=== PATIENT | male | born 1995 | race Caucasian/White ===

== ENCOUNTER 2023-04-03 20:39 | Inpatient (IN) | payer OTHER ==
[~2023-04-03] VITALS: Ht 180.3 cm; Wt 91.7 kg
[2023-04-03] MEDS ORDERED: ACETAMINOPHEN 325 MG TAB PO ONE (21:25)
[2023-04-03 21:54] LABS: HEMATOCRIT 35.3 % (42.0-52.0); HEMOGLOBIN 12.5 g/dl (13.5-17.5); LYMPH # 0.4 10^3/uL (1.5-5.0); LYMPH % 70.4 % (24.0-44.0); MEAN CORPUSCULAR HEMOGLOBIN 29.4 pg (27.0-33.0); MEAN CORPUSCULAR HGB CONC 35.4 g/dl (32.0-36.5); MEAN CORPUSCULAR VOLUME 83.1 fl (80.0-96.0); MONO # 0.1 10^3/uL (0.0-0.8); NEUTROPHILS % 16.6 % (36.0-66.0); PLATELET COUNT, AUTOMATED 123 10^3/uL (150-450); RED BLOOD COUNT 4.25 10^6/uL (4.30-6.10)
[2023-04-03 21:58] LABS: NEUTROPHILS # 0.1 10^3/uL (1.5-8.5); WHITE BLOOD COUNT 0.5 10^3/uL (4.0-10.0)
[2023-04-03 22:26] LABS: ALBUMIN 3.3 G/DL (3.2-5.2); ALKALINE PHOSPHATASE 55 U/L (46-116); ALT/SGPT 25 U/L (7.0-40); AST/SGOT 13 U/L (<34); BILIRUBIN,TOTAL 0.4 MG/DL (0.3-1.2); BLOOD UREA NITROGEN 14 MG/DL (9-23); CALCIUM LEVEL 8.6 MG/DL (8.5-10.1); CARBON DIOXIDE LEVEL 26 MMOL/L (20-31); CHLORIDE LEVEL 100 MMOL/L (98-107); CREATININE FOR GFR 1.26 MG/DL (0.70-1.30); GLOMERULAR FILTRATION RATE > 60.0 (>60); GLUCOSE, FASTING 102 MG/DL (60-100); MAGNESIUM LEVEL 1.4 MG/DL (1.8-2.4); POTASSIUM SERUM 3.8 MMOL/L (3.5-5.1); SODIUM LEVEL 135 MMOL/L (136-145); TOTAL PROTEIN 6.6 G/DL (5.7-8.2)
[2023-04-03] MEDS ORDERED: CEFEPIME HCL 1 GM in D5W MINI-BAG PLUS 50 ML IV ONE (23:35)
[2023-04-03] MEDS ORDERED: UNRESOLVED CLARIFICATION ENTRY XX STA (23:35)
[2023-04-04] MEDS ORDERED: ACETAMINOPHEN TAB 650MG DOSE (2X325MG) PO PRN (00:40)
[2023-04-04] MEDS ORDERED: MOM 30ML SUSPENSION UDC PO PRN (00:40)
[2023-04-04] MEDS ORDERED: NS 1,000 ML IV SCH (00:40)
[2023-04-04 00:55] VITALS: BP 111/61; TEMP 97.5; O2SAT 96
[2023-04-04] MEDS ORDERED: MAG SULF 1GM/100ML (MAG RUN) 1 GM in IV 1 EA IV ONE (01:00)
[2023-04-04] MEDS ORDERED: ONDA-196 PO (01:07)
[2023-04-04] MEDS ORDERED: DOCU100C17 PO (01:07)
[2023-04-04] MEDS ORDERED: PROC5TAB57 PO (01:07)
[2023-04-04] MEDS ORDERED: HOME MED LIST COMPLETE! XX SCH (01:10)
[2023-04-04] MEDS: HEPARIN SOD (PORCINE) 5000UNITS/ML 1ML VIAL/SYRINGE SQ SCH ×4 (05:37→22:00)
[2023-04-04 05:43] VITALS: BP 128/68; TEMP 97.5; O2SAT 100
[2023-04-04] MEDS: CEFEPIME HCL 2 GM in D5W 50 ML IV SCH ×3 (05:49→22:39)
[2023-04-04 07:54] LABS: BASO % 1.2 % (0.0-1.0); EOS % 3.7 % (0.0-3.0); HEMATOCRIT 34.3 % (42.0-52.0); HEMOGLOBIN 12.2 g/dl (13.5-17.5); LYMPH # 0.5 10^3/uL (1.5-5.0); LYMPH % 66.7 % (24.0-44.0); MEAN CORPUSCULAR HEMOGLOBIN 29.7 pg (27.0-33.0); MEAN CORPUSCULAR HGB CONC 35.6 g/dl (32.0-36.5); MEAN CORPUSCULAR VOLUME 83.5 fl (80.0-96.0); MONO # 0.2 10^3/uL (0.0-0.8); MONO % 22.2 % (2.0-8.0); NEUTROPHILS % 6.2 % (36.0-66.0); PLATELET COUNT, AUTOMATED 120 10^3/uL (150-450); RED BLOOD COUNT 4.11 10^6/uL (4.30-6.10)
[2023-04-04 08:09] LABS: NEUTROPHILS # 0.1 10^3/uL (1.5-8.5); WHITE BLOOD COUNT 0.8 10^3/uL (4.0-10.0)
[2023-04-04 08:21] LABS: ALKALINE PHOSPHATASE 54 U/L (46-116); ALT/SGPT 26 U/L (7.0-40); AST/SGOT 13 U/L (<34); BILIRUBIN,TOTAL 0.6 MG/DL (0.3-1.2); BLOOD UREA NITROGEN 15 MG/DL (9-23); CALCIUM LEVEL 8.3 MG/DL (8.5-10.1); CARBON DIOXIDE LEVEL 27 MMOL/L (20-31); CHLORIDE LEVEL 103 MMOL/L (98-107); CREATININE FOR GFR 1.13 MG/DL (0.70-1.30); GLOMERULAR FILTRATION RATE > 60.0 (>60); GLUCOSE, FASTING 102 MG/DL (60-100); MAGNESIUM LEVEL 1.8 MG/DL (1.8-2.4); POTASSIUM SERUM 4.1 MMOL/L (3.5-5.1); SODIUM LEVEL 138 MMOL/L (136-145); TOTAL PROTEIN 6.1 G/DL (5.7-8.2)
[2023-04-04] MEDS: FILGRASTIM 480 MCG/0.8 ML SYRINGE **SC ADMINISTRATION ONLY SC SCH (11:04)
[2023-04-04 11:55] LABS: PROCALCITONIN 0.18 ng/ml
[2023-04-04 13:55] VITALS: BP 126/65; TEMP 97.7; O2SAT 99
[2023-04-04 20:41] VITALS: BP 128/78; TEMP 98.1; O2SAT 96
[2023-04-05] MEDS: HEPARIN SOD (PORCINE) 5000UNITS/ML 1ML VIAL/SYRINGE SQ SCH ×3 (05:36→21:44)
[2023-04-05 05:45] VITALS: BP 127/77; TEMP 97.7; O2SAT 97
[2023-04-05] MEDS: CEFEPIME HCL 2 GM in D5W 50 ML IV SCH ×3 (05:47→21:53)
[2023-04-05 06:05] LABS: HEMATOCRIT 34.8 % (42.0-52.0); HEMOGLOBIN 12.4 g/dl (13.5-17.5); MEAN CORPUSCULAR HEMOGLOBIN 29.6 pg (27.0-33.0); MEAN CORPUSCULAR HGB CONC 35.6 g/dl (32.0-36.5); MEAN CORPUSCULAR VOLUME 83.1 fl (80.0-96.0); PLATELET COUNT, AUTOMATED 160 10^3/uL (150-450); RED BLOOD COUNT 4.19 10^6/uL (4.30-6.10); WHITE BLOOD COUNT 1.3 10^3/uL (4.0-10.0)
[2023-04-05 06:33] LABS: ALKALINE PHOSPHATASE 56 U/L (46-116); ALT/SGPT 29 U/L (7.0-40); AST/SGOT 16 U/L (<34); BILIRUBIN,TOTAL 0.5 MG/DL (0.3-1.2); BLOOD UREA NITROGEN 11 MG/DL (9-23); CALCIUM LEVEL 8.4 MG/DL (8.5-10.1); CARBON DIOXIDE LEVEL 27 MMOL/L (20-31); CHLORIDE LEVEL 102 MMOL/L (98-107); CREATININE FOR GFR 1.18 MG/DL (0.70-1.30); GLOMERULAR FILTRATION RATE > 60.0 (>60); GLUCOSE, FASTING 96 MG/DL (60-100); MAGNESIUM LEVEL 1.6 MG/DL (1.8-2.4); POTASSIUM SERUM 4.5 MMOL/L (3.5-5.1); SODIUM LEVEL 139 MMOL/L (136-145); TOTAL PROTEIN 6.2 G/DL (5.7-8.2)
[2023-04-05 07:23] LABS: ATYPICAL LYMPH 29 % (0-5); BASOPHILS 3 % (0-1); BLAST CELLS 1 % (0-0); EOSINOPHILS 3 % (0-3); GIANT PLATELETS 1+; LYMPHOCYTES 33 % (16-44); MONOCYTES 28 % (0-5); NEUTROPHILS 2 % (28-66); PLATELET ESTIMATE NORMAL (NORMAL); TOXIC VACUOLATION 1+
[2023-04-05] MEDS: MAG SULF 1GM/100ML (MAG RUN) 1 GM in IV 1 EA IV SCH ×2 (08:20→10:18)
[2023-04-05] MEDS: MAGNESIUM OXIDE 400MG TAB (MAG-OX) PO SCH ×2 (08:21→21:54)
[2023-04-05] MEDS: FILGRASTIM 480 MCG/0.8 ML SYRINGE **SC ADMINISTRATION ONLY SC SCH (13:17)
[2023-04-05 16:18] LABS: HEMATOCRIT 35.9 % (42.0-52.0); HEMOGLOBIN 12.7 g/dl (13.5-17.5); MEAN CORPUSCULAR HEMOGLOBIN 29.1 pg (27.0-33.0); MEAN CORPUSCULAR HGB CONC 35.4 g/dl (32.0-36.5); MEAN CORPUSCULAR VOLUME 82.2 fl (80.0-96.0); PLATELET COUNT, AUTOMATED 167 10^3/uL (150-450); RED BLOOD COUNT 4.37 10^6/uL (4.30-6.10); WHITE BLOOD COUNT 2.2 10^3/uL (4.0-10.0)
[2023-04-05 16:38] LABS: ATYPICAL LYMPH 18 % (0-5); BASOPHILS 1 % (0-1); BLAST CELLS 1 % (0-0); DOHLE BODIES 1+; EOSINOPHILS 2 % (0-3); LYMPHOCYTES 48 % (16-44); METAMYELOCYTES 1 % (0-0); MONOCYTES 19 % (0-5); NEUTROPHILS 7 % (28-66); PLATELET ESTIMATE NORMAL (NORMAL)
[2023-04-05] MEDS: GABAPENTIN 100 MG CAP PO SCH ×2 (17:17→21:53)
[2023-04-05 20:15] VITALS: BP 132/73; TEMP 97.3; O2SAT 97
[2023-04-06 05:32] VITALS: BP 123/74; TEMP 97.9; O2SAT 96
[2023-04-06] MEDS: HEPARIN SOD (PORCINE) 5000UNITS/ML 1ML VIAL/SYRINGE SQ SCH (06:00)
[2023-04-06 06:05] LABS: HEMATOCRIT 36.3 % (42.0-52.0); HEMOGLOBIN 12.8 g/dl (13.5-17.5); MEAN CORPUSCULAR HEMOGLOBIN 29.2 pg (27.0-33.0); MEAN CORPUSCULAR HGB CONC 35.3 g/dl (32.0-36.5); MEAN CORPUSCULAR VOLUME 82.9 fl (80.0-96.0); PLATELET COUNT, AUTOMATED 184 10^3/uL (150-450); RED BLOOD COUNT 4.38 10^6/uL (4.30-6.10); WHITE BLOOD COUNT 4.2 10^3/uL (4.0-10.0)
[2023-04-06] MEDS: CEFEPIME HCL 2 GM in D5W 50 ML IV SCH (06:08)
[2023-04-06 06:27] LABS: ALKALINE PHOSPHATASE 61 U/L (46-116); ALT/SGPT 27 U/L (7.0-40); AST/SGOT 18 U/L (<34); BILIRUBIN,TOTAL 0.5 MG/DL (0.3-1.2); BLOOD UREA NITROGEN 13 MG/DL (9-23); CALCIUM LEVEL 8.7 MG/DL (8.5-10.1); CARBON DIOXIDE LEVEL 29 MMOL/L (20-31); CHLORIDE LEVEL 101 MMOL/L (98-107); GLOMERULAR FILTRATION RATE > 60.0 (>60); GLUCOSE, FASTING 92 MG/DL (60-100); MAGNESIUM LEVEL 1.9 MG/DL (1.8-2.4); POTASSIUM SERUM 4.3 MMOL/L (3.5-5.1); SODIUM LEVEL 138 MMOL/L (136-145); TOTAL PROTEIN 6.5 G/DL (5.7-8.2)
[2023-04-06 07:01] LABS: ATYPICAL LYMPH 7 % (0-5); BLAST CELLS 1 % (0-0); EOSINOPHILS 2 % (0-3); LYMPHOCYTES 37 % (16-44); MONOCYTES 17 % (0-5); MYELOCYTES 1 % (0-0); NEUTROPHILS 15 % (28-66); PLASMA CELL 1 % (0-0); PLATELET ESTIMATE NORMAL (NORMAL); PROMYELOCYTES 1 % (0-0)
[2023-04-06] MEDS ORDERED: LEVO1TAB40 PO (07:22)
[2023-04-06] MEDS ORDERED: MAGN400T2 PO (07:22)
[2023-04-06] MEDS ORDERED: GABA-1171 PO (07:22)
[2023-04-06 08:56] VITALS: BP 135/81; TEMP 97.7
[2023-04-06] MEDS: GABAPENTIN 100 MG CAP PO SCH (09:20)
[2023-04-06] MEDS: MAGNESIUM OXIDE 400MG TAB (MAG-OX) PO SCH (09:20)
== END 2023-04-06 11:05 | disposition home or self-care (01) | DRG 809 ==
LOC: M ED 20:39 → M ED INP 23:45 → M MS5PR 04-04 01:08
PROVIDERS: ADMIT Family Medicine; ATTEND Internal Medicine
DX: D70.9 Neutropenia, unspecified (principal); E87.1 Hypo-osmolality and hyponatremia; E83.42 Hypomagnesemia; C62.90 Malignant neoplasm of unspecified testis, unspecified whether descended or undescended; Z92.21 Personal history of antineoplastic chemotherapy; M54.50 Low back pain, unspecified; Z79.899 Other long term (current) drug therapy

== ENCOUNTER → 2023-06-12 | Outpatient (CLI) | payer OTHER ==
[~2023-06-12] MED LIST: DOCU100C17 PO; GABA-1171 PO; ISOVUE-370 76% 100ML VIAL As Ordered ONE; LEVO1TAB40 PO; MAGN400T2 PO; ONDA-196 PO; PROC5TAB57 PO
== END ==
LOC: M RAD 10:44
PROVIDERS: ATTEND Family Medicine
DX: C62.90 Malignant neoplasm of unspecified testis, unspecified whether descended or undescended (principal); Z92.21 Personal history of antineoplastic chemotherapy; K40.20 Bilateral inguinal hernia, without obstruction or gangrene, not specified as recurrent; M79.89 Other specified soft tissue disorders; K44.9 Diaphragmatic hernia without obstruction or gangrene; J98.11 Atelectasis
CPT/HCPCS: 71260; 74177; Q9967

== ENCOUNTER → 2023-10-04 | Outpatient (REF) | payer OTHER ==
[~2023-10-04] MED LIST changes: -ISOVUE-370 76% 100ML VIAL As Ordered ONE
== END ==
LOC: M LABSMT 11:36
PROVIDERS: ATTEND Urology
DX: Z30.2 Encounter for sterilization (principal)

== ENCOUNTER → 2023-12-12 | Outpatient (CLI) | payer OTHER ==
[~2023-12-12] MED LIST changes: +PROHANCE 279.3MG/ML 15ML VIAL As Ordered ONE; +PROHANCE 279.3MG/ML 5ML VIAL As Ordered ONE
== END ==
LOC: M RAD 12:10
PROVIDERS: ATTEND Family Medicine
DX: C62.11 Malignant neoplasm of descended right testis (principal); M79.89 Other specified soft tissue disorders; Z30.2 Encounter for sterilization
CPT/HCPCS: 74183; 89321; A9576

== ENCOUNTER → 2023-12-12 | Outpatient (REF) | payer OTHER ==
[~2023-12-12] MED LIST changes: -PROHANCE 279.3MG/ML 15ML VIAL As Ordered ONE; -PROHANCE 279.3MG/ML 5ML VIAL As Ordered ONE
[2023-12-12 12:46] LABS: SEMEN APPEARANCE OPAQUE (OPAQUE); SEMEN VISCOSITY VISCOUS (LIQUID); SEMEN VOLUME 2.8 ml (2.0-5.0); WBC CONCENTRATION >1 M/ml (<=1 M/ml)
== END ==
LOC: M SMT 12:03
PROVIDERS: ATTEND Urology
DX: Z30.2 Encounter for sterilization (principal)

== ENCOUNTER → 2024-01-12 | Outpatient (CLI) | payer OTHER ==
[~2024-01-12] MED LIST changes: +ISOVUE-370 76% 100ML VIAL ONE
== END ==
LOC: M PLAIMG 13:41
PROVIDERS: ATTEND Family Medicine
DX: R06.00 Dyspnea, unspecified (principal); C62.90 Malignant neoplasm of unspecified testis, unspecified whether descended or undescended
CPT/HCPCS: 71260; Q9967

== ENCOUNTER → 2024-06-17 | Outpatient (CLI) | payer OTHER ==
[~2024-06-17] MED LIST changes: -ISOVUE-370 76% 100ML VIAL ONE; +PROHANCE 279.3MG/ML 15ML VIAL As Ordered ONE; +PROHANCE 279.3MG/ML 5ML VIAL As Ordered ONE
== END ==
LOC: M RAD 08:10
PROVIDERS: ATTEND Family Medicine
DX: C62.90 Malignant neoplasm of unspecified testis, unspecified whether descended or undescended (principal)
CPT/HCPCS: 74183; A9576